=== PATIENT | male | born 1950 | race Two or more races ===

== ENCOUNTER 2022-05-13 08:17 | Day surgery (SDC) | payer OTHER, MEDICAID ==
[2022-05-12 10:55] VITALS: BMI 35.5
[~2022-05-13 08:17] MED LIST: Fluorouracil 100 MG, Enoxaparin Sodium 25 MG, EPINEPHrine 0.3 MG, Dextrose 50% 3 ML in ... IRR SCH; Midazolam HCl 2 mg/2 ml Vial ONE; fentaNYL PF 100 MCG/2 ML SYRINGE ONE
[2022-05-13] MEDS ORDERED: Cyclopentolate 1% Opth Drop 2 ML BOT ONE (09:10)
[2022-05-13] MEDS ORDERED: Phenylephrine 2.5% Ophth Soln 5 ML BOT ONE (09:10)
[2022-05-13] MEDS ORDERED: PROPOFOL 200 MG/20 ML VIAL ONE (10:35)
[2022-05-13] MEDS ORDERED: CEFAZOLIN 1 GM VIAL ONE (10:35)
[2022-05-13] MEDS ORDERED: Maxitrol 0.1% Opth Oint 3.5 GM TUBE ONE (10:35)
[2022-05-13] MEDS ORDERED: Indocyanine Green 25 MG/10 ML VIAL ONE (10:35)
[2022-05-13] MEDS ORDERED: Triamcinolone 40 MG/ML VIAL ONE (10:35)
[2022-05-13] MEDS ORDERED: Enoxaparin Sodium 30 MG/0.3 ML SYRINGE ONE (10:35)
[2022-05-13] MEDS ORDERED: Lidocaine 1% PF 5 ML VIAL ONE (10:35)
[2022-05-13] MEDS ORDERED: Bupivacaine 0.75% 10 ML VIAL ONE (10:35)
[2022-05-13] MEDS ORDERED: Lidocaine 4% PF 5 ML AMP ONE (10:35)
== END 2022-05-13 12:25 | disposition home or self-care (01) ==
LOC: SDC 08:17
PROVIDERS: ATTEND Ophthalmology Retina Specialist
PROC: 08T53ZZ Resection of Left Vitreous, Percutaneous Approach (ICD-10-PCS; principal; 2022-05-13)
PROC: 08NF3ZZ Release Left Retina, Percutaneous Approach (ICD-10-PCS; 2022-05-13)
DX: H35.342 Macular cyst, hole, or pseudohole, left eye (principal); I10 Essential (primary) hypertension; E11.9 Type 2 diabetes mellitus without complications; E66.9 Obesity, unspecified; Z68.36 Body mass index [BMI] 36.0-36.9, adult; Z86.16 Personal history of COVID-19; Z79.4 Long term (current) use of insulin; Z79.84 Long term (current) use of oral hypoglycemic drugs; Z79.899 Other long term (current) drug therapy
CPT/HCPCS: 36416; 67025; J0171; J0690; J1650; J2250; J2704; J3301; J3490; J9190